=== PATIENT | male | born 1990 | race Caucasian/White ===

== ENCOUNTER 2023-02-12 14:05 | Emergency (ER) | payer OTHER ==
[2023-02-12 14:14] VITALS: TEMP 97.9
[2023-02-12 14:32] LABS: Basophils # (A) 0.1 k/uL (0-0.2); Basophils % (A) 1 %; Eosinophils # (A) 0.3 k/uL (0-0.7); Eosinophils % (A) 5 %; HCT 41.8 % (39.0-53.0); HGB 14.2 gm/dL (13.0-17.5); Lymphocytes # (A) 1.2 k/uL (1.0-4.8); Lymphocytes % (A) 17 %; MCH 31.8 pg (25.0-35.0); MCV 93.6 fL (80.0-100.0); Mean Platelet Volume 8.7; Monocytes # (A) 0.4 k/uL (0-1.0); Monocytes % (A) 5 %; Neutrophils # (A) 4.8 k/uL (1.3-7.7); Neutrophils % (A) 71 %; Platelet Count 201 k/uL (150-450); RBC 4.46 m/uL (4.30-5.90); RDW 13.1 % (11.5-15.5); WBC 6.7 k/uL (3.8-10.6)
--- NOTE | 2023-02-12 14:37 | ED ---
Chest Pain HPI - General Chief Complaint: Chest Pain Stated Complaint: chest pain Time Seen by Provider: 02/12/23 14:12 Source: patient, RN notes reviewed Mode of arrival: EMS Limitations: no limitations - History of Present Illness Initial Comments: This is a 32-year-old male who presents to the emergency department for chest pain. Patient is currently at [facility] for cocaine abuse. He has been there for 10 days. States that earlier today, he developed right-sided chest pain that seemed to go into the arm. Symptoms have currently resolved. States that the episode lasted approximately one hour. Denies any history similar symptoms in the past. Reports a cardiac history in both of his parents and his grandmother. Unsure if his parents had a heart attack. States that his grandmother did have a heart attack before she was 50. He denies any shortness of breath. He otherwise feels back to baseline. Denies any fevers, chills, sore throat, cough, dyspnea, palpitations, abdominal pain, nausea, vomiting, diarrhea, back pain, or headaches. MD Complaint: chest pain - Related Data Home Medications Medication Instructions Recorded Confirmed Acetaminophen Tab [Tylenol] 650 mg PO Q4H 02/12/23 02/12/23 Calcium/Mag/Zinc/Vitamin D 1 tab PO TID PRN 02/12/23 02/12/23 Ibuprofen [Motrin Ib] 600 mg PO Q6H PRN 02/12/23 02/12/23 busPIRone HCl [Buspar] 10 mg PO TID 02/12/23 02/12/23 traZODone HCL [Desyrel] 50 - 150 mg PO HS PRN 02/12/23 02/12/23 Allergies Allergy/AdvReac Type Severity Reaction Status Date / Time amoxicillin Allergy Swelling Verified 02/12/23 14:48 Penicillins Allergy Swelling Verified 02/12/23 14:48 Review of Systems ROS Statement: Those systems with pertinent positive or pertinent negative responses have been documented in the HPI. ROS Other: All systems not noted in ROS Statement are negative. Past Medical History History of Any Multi-Drug Resistant Organisms: None Reported Past Surgical History: Appendectomy Smoking Status: Current every day smoker Past Alcohol Use History: None Reported Past Drug Use History: Cocaine General Exam Limitations: no limitations General appearance: alert, in no apparent distress Head exam: Present: atraumatic, normocephalic, normal inspection Respiratory exam: Present: normal lung sounds bilaterally. Absent: respiratory distress, wheezes, rales, rhonchi, stridor, chest wall tenderness Cardiovascular Exam: Present: regular rate, normal rhythm, normal heart sounds. Absent: systolic murmur, diastolic murmur, rubs, gallop, clicks Neurological exam: Present: alert, oriented X3, CN II-XII intact Psychiatric exam: Present: normal affect, normal mood Skin exam: Present: warm, dry, intact, normal color. Absent: rash Course Vital Signs 02/12/23 02/12/23 14:09 17:00 Temperature 97.9 F Pulse Rate 91 77 Respiratory 19 18 Rate Blood Pressure 137/86 128/78 O2 Sat by Pulse 96 98 Oximetry Chest Pain MDM - MDM This is a 32-year-old male who presents to the emergency department for chest pain. Was pt. sent in by a medical professional or institution? @ -[facility] Did you speak to anyone other than the patient for history? @ -No Did you review nursing and triage notes? @ -Yes, and I agree, it is accurate with regards to the patient's symptoms. Were old charts reviewed? @ -No Differential Diagnosis? @ -Differential Chest Pain: Stable Angina, Unstable Angina, STEMI, NSTEMI Aortic Dissection, Pneumothorax, Musculoskeletal, Esophageal Spasm GERD, Cholecystitis, Pancreatitis, Zoster, this is not meant to be an all-inclusive list. EKG interpreted by me (3pts min.)? @ -Sinus rhythm. Ventricular rate 82 beats per minute, OK interval 144 ms, QRS duration 88 ms, QTC 391 ms. X-rays interpreted by me (1pt min.)? @ -Chest x-ray obtained, my interpretation identifies no localized consolidations or infiltrates. US interpreted by me (1pt min.)? @ -Gallbladder US obtained. My interpretation identifies no gallbladder wall thickening or cholelithiasis. What testing was considered but not performed? (CT, X-rays, U/S, labs)? Why? @ -None What meds were considered but not given? Why? @ -None Did you discuss the management of the patient with other professionals? @ -No Did you reconcile home meds? @ -No Was smoking cessation discussed for >3mins.? @ -No Was critical care preformed (if so, how long)? @ -No Were there social determinants of health that impacted care today? How? (Homelessness, low income, unemployed, alcoholism, drug addiction, transportation, low edu. Level, literacy, decrease access to med. care, alf, rehab)? @ -Drug addiction, increasing risk of cardiac problems and worsening his overall status. Was there de-escalation of care discussed even if they declined? (Discuss DNR or withdrawal of care, Hospice)? @ -No What co-morbidities impacted this encounter? (DM, HTN, Smoking, COPD, CAD, Cancer, CVA, Hep., AIDS, mental health diagnosis, sleep apnea, morbid obesity)? @ -Cocaine abuse Was patient admitted / discharged? @ -Discharged. Lab work obtained revealing a minor elevation in liver enzymes. Chest x-ray reveals no acute findings. Given the elevation of liver enzymes, gallbladder ultrasound obtained. This also revealed no acute findings. Advised that there is no clear cause for his chest pain at this time. Troponin is negative. Patient continues to feel back to his baseline and requests discharge home. Patient discharged back to [facility]. Undiagnosed new problem with uncertain prognosis? @ -None Drug Therapy requiring intensive monitoring for toxicity (Heparin, Nitro, Insulin, Cardizem)? @ -None Were any procedures done? @ -None Diagnosis/symptom? @ -Atypical Chest Pain Acute, or Chronic, or Acute on Chronic? @ -Acute Uncomplicated (without systemic symptoms) or Complicated (systemic symptoms)? @ -Uncomplicated Side effects of treatment? @ -None Exacerbation, Progression, or Severe Exacerbation] @ -Not applicable Poses a threat to life or bodily function? @ -This will depend on the cause of his chest pain. Return precautions reviewed in depth, the patient is instructed to return to the emergency department with any new, worsening, or concerning symptoms. Patient verbalized understanding. This case was discussed in detail with the attending ED physician, Dr. Hu. Presentation, findings, and treatment plan discussed in detail as well. Disposition Clinical Impression: Chest pain Disposition: HOME SELF-CARE Instructions (If sedation given, give patient instructions): Noncardiac Chest Pain (ED) Additional Instructions: Return to the emergency department with any new, worsening, or concerning symptoms. Follow up with your primary care provider in 1-2 days. Is patient prescribed a controlled substance at d/c from ED?: No Referrals: None,Stated [Primary Care Provider] - 1-2 days
--- NOTE | 2023-02-12 14:38 | XR ---
EXAMINATION TYPE: XR chest 2V DATE OF EXAM: 02/12/2023 COMPARISON: NONE TECHNIQUE: PA and lateral views submitted. HISTORY: Chest pain FINDINGS: The lungs are clear and there is no pneumothorax, pleural effusion, or focal pneumonia. Heart size normal and no overt failure. Osseous structures are intact. Hyperinflation correlate for asthma. IMPRESSION: 1. No acute process.
[2023-02-12 14:52] LABS: INR 0.9 (<1.2); Partial Thromboplastin Time 28.5 sec (22.0-30.0)
[2023-02-12 14:59] LABS: ALT 78 U/L (4-49); AST 156 U/L (17-59); African American GFR (CKD) >90 (>60 ml/min/1.73 sqM); Albumin 4.2 g/dL (3.5-5.0); Alkaline Phosphatase 49 U/L (38-126); Anion Gap 6 mmol/L; Blood Urea Nitrogen 21 mg/dL (9-20); Calcium 9.2 mg/dL (8.4-10.2); Carbon Dioxide 30 mmol/L (22-30); Chloride 102 mmol/L (98-107); Glucose 94 mg/dL (74-99); Magnesium 2.1 mg/dL (1.6-2.3); Non-African American GFR(CKD) >90 (>60 ml/min/1.73 sqM); Potassium 4.7 mmol/L (3.5-5.1); Sodium 138 mmol/L (137-145); Total Bilirubin 0.3 mg/dL (0.2-1.3); Total Protein 6.9 g/dL (6.3-8.2)
--- NOTE | 2023-02-12 16:12 | US ---
EXAMINATION TYPE: US gallbladder DATE OF EXAM: 02/12/2023 COMPARISON: NONE CLINICAL HISTORY: Right sided chest pain, elevated liver enzymes. chest pain. Patient not 6 hours [employer] O. TECHNIQUE: Multiple sonographic images of the right upper quadrant are obtained. FINDINGS: EXAM MEASUREMENTS: Liver Length: 15.8 cm Gallbladder Wall: 0.2 cm CBD: 0.4 cm Right Kidney: 11.0 x 4.2 x 3.8 cm Pancreas: Tail obscured by overlying bowel gas Liver: wnl Gallbladder: Appears small in size but could be due to no NPO status Evidence for sonographic Mcfarland's sign: neg CBD: wnl Right Kidney: Anechoic lesions seen in upper pole. 1- 1.3 x 1.1 x 1.1 cm. 2- 1.2 x 1.3 x 1.1 cm IMPRESSION: Simple cyst right kidney.
[2023-02-12 17:33] VITALS: BP 128/78; PULSE 77; RESP 18
== END 2023-02-12 17:34 | disposition home or self-care (01) ==
LOC: EC 14:05
DX: R07.89 Other chest pain (principal); F17.200 Nicotine dependence, unspecified, uncomplicated; Z88.0 Allergy status to penicillin; Z88.1 Allergy status to other antibiotic agents
CPT/HCPCS: 36415; 71046; 76705; 80053; 83735; 84484; 85025; 85610; 85730; 93005; 99285